=== PATIENT | male | born 2000 | race African-American/Black ===

== ENCOUNTER 2024-11-03 22:42 | Emergency (ER) | payer MEDICAID ==
[~2024-11-03] VITALS: Ht 182.9 cm; Wt 81.8 kg
[2024-11-04 02:55] VITALS: TEMP 98.2
[2024-11-04] MEDS: SODIUM CHLORIDE 0.9% 1,000 ML IV ONE (03:14)
[2024-11-04] MEDS: KETOROLAC TROMETHAMINE 30 MG/ML VIAL IVP ONE (03:15)
[2024-11-04] MEDS: METOCLOPRAMIDE HCL 5 MG/ML 2 ML VIAL IVP ONE (03:16)
[2024-11-04 05:00] VITALS: BP 110/71; PULSE 62; RESP 16; O2SAT 98
[2024-11-04] MEDS ORDERED: NAPR-1196 PO (17:43)
== END 2024-11-04 05:10 | disposition home or self-care (01) ==
LOC: EMS 22:44
DX: G43.909 Migraine, unspecified, not intractable, without status migrainosus (principal); F17.210 Nicotine dependence, cigarettes, uncomplicated; F12.90 Cannabis use, unspecified, uncomplicated
CPT/HCPCS: 99284; 96374; 96361; 96375; J1885; J1200; J2765; J7030

== ENCOUNTER 2024-11-04 14:57 | Emergency (ER) | payer MEDICAID ==
[~2024-11-04] VITALS: Ht 182.9 cm; Wt 72.7 kg
[2024-11-04 15:06] VITALS: TEMP 98.1
[2024-11-04] MEDS: METOCLOPRAMIDE HCL 5 MG/ML 2 ML VIAL IVP ONE (16:19)
[2024-11-04] MEDS: SODIUM CHLORIDE 0.9% 1,000 ML IV ONE (16:19)
[2024-11-04] MEDS: DEXAMETHASONE SOD PHOS 4 MG/ML 5 ML VIAL IVP ONE (16:19)
[2024-11-04 17:00] VITALS: BP 119/66; PULSE 72; RESP 16; O2SAT 99
[2024-11-04] MEDS ORDERED: NAPR-1196 PO (17:43)
== END 2024-11-04 18:30 | disposition home or self-care (01) ==
LOC: EMS 14:57
DX: G43.909 Migraine, unspecified, not intractable, without status migrainosus (principal); R11.0 Nausea; F12.90 Cannabis use, unspecified, uncomplicated; F17.210 Nicotine dependence, cigarettes, uncomplicated
CPT/HCPCS: 99284; 96374; 96361; 96375; J1100; J1200; J2765; J7030